=== PATIENT | female | born 1965 | race Two or more races ===

== ENCOUNTER → 2021-03-20 14:19 | Outpatient (CLI) | payer OTHER ==
[~2021-03-20 14:19] MED LIST: CLARITIN10 MG PO; WELLBUTRIN SR150 MG PO
== END | disposition home or self-care (01) ==
LOC: LAB 14:19
DX: Z20.828 Contact with and (suspected) exposure to other viral communicable diseases (principal)

== ENCOUNTER → 2021-07-20 | Emergency (ER) | payer OTHER ==
[~2021-07-20] VITALS: Ht 152.4 cm; Wt 64.9 kg
[~2021-07-20] MED LIST changes: +AMOX1TAB5 PO; +INTESTINEX680 M2 PO; +NAPROXEN375 MG PO
== END | disposition home or self-care (01) ==
LOC: ER 00:18
DX: S91.321A Laceration with foreign body, right foot, initial encounter (principal); W25.XXXA Contact with sharp glass, initial encounter; Y93.89 Activity, other specified; Y92.098 Other place in other non-institutional residence as the place of occurrence of the external cause; Y99.8 Other external cause status

== ENCOUNTER 2022-10-16 10:11 | Outpatient (CLI) | payer OTHER | END 2022-10-16 10:18 | disposition home or self-care (01) | LOC: LAB 10:11 | DX: J10.89 Influenza due to other identified influenza virus with other manifestations (principal); Z20.822 Contact with and (suspected) exposure to COVID-19 ==

== ENCOUNTER 2022-10-16 14:16 | Emergency (ER) | payer OTHER ==
[~2022-10-16] VITALS: Ht 152.4 cm; Wt 62.6 kg
== END 2022-10-16 17:51 | disposition home or self-care (01) ==
LOC: ER 14:16
DX: U07.1 COVID-19 (principal); J10.1 Influenza due to other identified influenza virus with other respiratory manifestations